=== PATIENT | female | born 1990 | race Hispanic/Latino ===

== ENCOUNTER 2017-09-23 02:49 | Emergency (ER) | payer OTHER ==
--- NOTE | 2017-09-23 04:47 | XRay Report ---
FINAL REPORT EXAM: XR ANKLE 2V RT HISTORY: s/p fall COMPARISONS: None. FINDINGS: Three views right ankle There is soft tissue swelling over the lateral malleolus. A minimally comminuted and angulated distal fibula oblique fracture extends superiorly from the level of the tibial plafond. The talus appears intact. There may be a minimally displaced posterior tibial malleolar fracture. Possible minimal widening of the medial ankle gutter. Joints of the midfoot are unremarkable. No other fractures are seen. IMPRESSION: Minimally comminuted and angulated distal right fibular fracture. Question minimally displaced posterior tibial malleolar fracture and mild widening of the medial ankle gutter. Consider follow-up noncontrast CT.
[2017-09-23] MEDS ORDERED: MORPHINE IM ONE (05:12)
[2017-09-23] MEDS ORDERED: ZOFRAN IM ONE (05:12)
--- NOTE | 2017-09-23 05:19 | Emergency Department Report ---
ED Lower Extremity HPI - General Chief Complaint: Extremity Injury, Lower Stated Complaint: RT ANKLE INJURY Time Seen by Provider: 09/23/17 05:06 Source: patient, family Mode of arrival: Wheelchair Limitations: Physical Limitation - History of Present Illness Initial Comments: Patient is 27 years old female with no significant past medical history, she stated that she was going down stair when she fell and twisted her right ankle. Patient denied any other injuries. No loss of consciousness, no syncope or dizziness. No head injury or neck injury. MD Complaint: ankle injury Injury: Ankle: Right Type of Injury: inversion Place: home Severity scale (0 -10): 7 Context: fall Associated Symptoms: snap/pop sensation, ambulatory. denies: swelling, numbness , tingling - Related Data Allergies Allergy/AdvReac Type Severity Reaction Status Date / Time No Known Allergies Allergy Unverified 09/23/17 03:59 ED Review of Systems ROS: Stated complaint: RT ANKLE INJURY Other details as noted in HPI Comment: All other systems reviewed and negative Constitutional: denies: chills, fever Respiratory: denies: cough Cardiovascular: denies: chest pain, palpitations, dyspnea on exertion, edema Gastrointestinal: denies: abdominal pain, nausea, vomiting, diarrhea, constipation, hematemesis Musculoskeletal: denies: back pain, joint swelling Neurological: denies: headache, weakness, numbness ED Past Medical Hx - Past Medical History Previous Medical History?: No - Surgical History Past Surgical History?: Yes Additional Surgical History: ovarian cyst - Social History Smoking Status: Former Smoker Substance Use Type: Alcohol, Marijuana ED Physical Exam - General Limitations: Physical Limitation General appearance: alert, in no apparent distress - Head Head exam: Present: atraumatic, normocephalic, normal inspection - Neck Neck exam: Present: normal inspection, full ROM. Absent: tenderness, meningismus - Respiratory Respiratory exam: Present: normal lung sounds bilaterally. Absent: respiratory distress, wheezes, chest wall tenderness - Cardiovascular Cardiovascular Exam: Present: regular rate, normal rhythm, normal heart sounds - GI/Abdominal GI/Abdominal exam: Present: soft. Absent: distended, tenderness, guarding - Extremities Exam Extremities exam: Present: other (no right medial malleolar tenderness) - Expanded Lower Extremity Exam Right Hip exam: Present: normal inspection, full ROM Upper Leg exam: Present: normal inspection, full ROM Knee exam: Present: normal inspection, full ROM Lower Leg exam: Present: tenderness. Absent: swelling, abrasion, ecchymosis, deformity, crepidus Ankle exam: Present: tenderness, swelling. Absent: full ROM, abrasion, laceration, ecchymosis, deformity ED Course Vital Signs 09/23/17 09/23/17 04:00 05:11 Temperature 98.4 F 98.6 F Pulse Rate 97 H 88 Respiratory 20 16 Rate Blood Pressure 132/81 Blood Pressure 124/82 [Right] O2 Sat by Pulse 99 99 Oximetry - Orthopedic Splinting/Casting Injury #1 Side: right Lower Extremity Injury Location: lower leg, ankle Lower Extremity Immobilizer: posterior splint Critical care attestation.: If time is entered above; I have spent that time in minutes in the direct care of this critically ill patient, excluding procedure time. ED Disposition Clinical Impression: Fracture of distal end of fibula Disposition: -01 TO HOME OR SELFCARE Is pt being admited?: No Condition: Stable Referrals: FORREST REESE MD [Staff Physician] - 3-5 Days
[2017-09-23 05:41] VITALS: BP 124/82
== END 2017-09-23 06:44 | disposition home or self-care (01) ==
LOC: ED 02:49
DX: S82.831A Other fracture of upper and lower end of right fibula, initial encounter for closed fracture (principal); W10.9XXA Fall (on) (from) unspecified stairs and steps, initial encounter; Y93.89 Activity, other specified; Y92.89 Other specified places as the place of occurrence of the external cause; Y99.8 Other external cause status; Z87.891 Personal history of nicotine dependence
CPT/HCPCS: 29515; 73600; 96372; 99283; J2270; J2405